=== PATIENT | female | born 1940 | race Caucasian/White ===

== ENCOUNTER 2022-10-18 20:24 | Inpatient (IN) | payer OTHER, BC ==
[~2022-10-18] VITALS: Ht 162.6 cm; Wt 47.6 kg
[2022-10-18 20:31] VITALS: BP 154/60
--- NOTE | 2022-10-18 20:32 | NUR ---
PT AZAM ALS. TAKEN TO BED 11
--- NOTE | 2022-10-18 20:33 | NUR ---
Dr. Carreon examining patient.
[2022-10-18] MEDS ORDERED: HYDROcodone/APAP 5/325 MG 1 TAB TAB PO ONE (20:40)
--- NOTE | 2022-10-18 20:49 | NUR ---
PT TAKEN TO XRAY
--- NOTE | 2022-10-18 21:08 | NUR ---
82YR OLD FEMALE BIB EMS C/O LL LEG PAIN S/P FALL AND FX XYESTERDAY. PT WAS SEEN AT [facility] YESTERDAY FX LLEG/PELVIC. PT HAS A BRACE ON . PLUS SWELLING AROUND THE KNEE 10/10 SHARP PAIN. PT IS A&OX4. GOOD CAP REFILL . NO DISCOLORSATION. SKIN WARM AND DRY. PT ON BEDSIDE MONITOR BED AT LOWEST POSITION HOB ELEVATED CODEINE GABAPENTIN RA OSTEO
--- NOTE | 2022-10-18 21:41 | NUR ---
CONTACT INFO OF DAUGHTER AUSTEN FOLLOWS:
--- NOTE | 2022-10-18 21:42 | NUR ---
Dr. Carreon examining patient.
--- NOTE | 2022-10-18 22:42 | NUR ---
ADMISSION TO HOSPITIAL.
[2022-10-18] MEDS ORDERED: MORPHINE SULFATE 4 MG/ML SYR IVP ONE (22:45)
--- NOTE | 2022-10-18 22:55 | NUR ---
20G IV CATH L AC LABS DRAWN AND AT BEDSIDE
[2022-10-18] MEDS ORDERED: ACET-512 PO (22:57)
[2022-10-18] MEDS ORDERED: OXYC18CA PO (22:58)
[2022-10-18] MEDS ORDERED: AMLO10TA PO (22:58)
[2022-10-18] MEDS ORDERED: SYN.075 PO (22:59)
[2022-10-18] MEDS ORDERED: HYDR12.51 PO (23:00)
[2022-10-18] MEDS ORDERED: OMEP20EC11 PO (23:10)
[2022-10-18] MEDS ORDERED: ABAT250V IV (23:11)
[2022-10-18] MEDS ORDERED: METH2.5T6 PO (23:12)
[2022-10-18] MEDS ORDERED: FOLI1TAB90 PO (23:13)
[2022-10-18 23:23] LABS: BASOPHILS % (AUTO) 0.4 % (0.0-2.0); EOSINOPHILS # (AUTO) 0.1 K/uL (0-0.4); EOSINOPHILS % (AUTO) 0.7 % (0.0-4.0); HEMOGLOBIN 10.7 g/dL (12.0-16.0); LYMPHOCYTES % (AUTO) 10.9 % (20.5-51.1); MEAN CORPUSCULAR HEMOGLOBIN 33 pg (27-31); MEAN CORPUSCULAR HGB CONC 35 g/dL (33-37); MEAN CORPUSCULAR VOLUME 96.7 fL (80-94); MONOCYTES # (AUTO) 0.7 K/uL (0.8-1.0); NEUTROPHILS # (AUTO) 7.3 K/uL (1.8-7.7); PLATELET COUNT (AUTO) 177 K/uL (140-450); RED CELL DISTRIBUTION WIDTH 14.5 % (11.6-13.7); WHITE BLOOD COUNT (AUTO) 9.1 K/uL (4.8-10.8)
[2022-10-18 23:25] LABS: ANION GAP 7.3 (8-16); CARBON DIOXIDE 33.7 mmol/L (21-32); CHLORIDE 101 mmol/L (98-107); CREATININE 0.6 mg/dL (0.6-1.3); GLUCOSE 91 mg/dL (74-106); SODIUM SERUM 139 mmol/L (136-145); UREA NITROGEN, BLOOD 11 mg/dL (7-18)
--- NOTE | 2022-10-18 23:33 | NUR ---
PUREWIC APPLIED TO PT
--- NOTE | 2022-10-18 23:34 | NUR ---
COVID SWAB COLLECTED AND SENT TO LAB
--- NOTE | 2022-10-18 23:38 | NUR ---
BP 101/53, PER SAÚL HANCOCK, HOLD 4MG OF MORPHINE, INSTEAD GIVE 2MG OF MORPHINE. ORDERS CARRIED OUT.
--- NOTE | 2022-10-19 00:26 | NUR ---
PT ON BEDSIDE MATERIAL ENGINEER RESP EVEN AND UNLABORED. HOB ELEVATED AND BED AT LOWEST POSITION. PAIN LEVEL 7/10
[2022-10-19] MEDS ORDERED: MORPHINE SULFATE 2 MG/ML SYR IVP PRN (00:40)
--- NOTE | 2022-10-19 00:48 | NUR ---
PT MOVED TO BED 4
[2022-10-19] MEDS: MORPHINE SULFATE 2 MG/ML SYR IVP PRN ×5 (04:48→23:41)
--- NOTE | 2022-10-19 06:36 | NUR ---
PATIENT HAS BEEN SCREENED AND CATEGORIZED HIGH NUTRITION RISK. PATIENT WILL BE SEEN WITHIN 1-2 DAYS OF ADMISSION. 10/19/22-10/21/[address]
--- NOTE | 2022-10-19 07:12 | NUR ---
PT RECEIVED, CARE ASSUMED. PT LAYING IN BED WITH C/O LEFT LEG, KNEE PAIN. INTRODUCED MYSELF. WILL CONTINUE TO MONITOR
[2022-10-19] MEDS ORDERED: DOCUSATE SODIUM 100 MG GELCAP PO PRN (08:10)
[2022-10-19] MEDS ORDERED: POTASSIUM CHLORIDE 10 MEQ TABER PO PRN (08:10)
[2022-10-19] MEDS ORDERED: MAG SULF 2000 MG/WATER PREMIX 50 ML IV PRN (08:10)
[2022-10-19] MEDS ORDERED: ONDANSETRON 4 MG/2 ML VIAL IVP PRN (08:10)
[2022-10-19] MEDS ORDERED: ZOLPIDEM 10 MG TAB PO PRN (08:10)
[2022-10-19] MEDS ORDERED: ACETAMINOPHEN 325 MG TAB PO PRN (08:10)
[2022-10-19] MEDS ORDERED: LORazepam 2 MG/ML VIAL IVP PRN (08:10)
[2022-10-19] MEDS: hydroCHLOROthiazide 25 MG TAB PO SCH (09:00)
[2022-10-19] MEDS: LEVOTHYROXINE 0.075 MG TAB PO SCH (09:00)
[2022-10-19] MEDS: FOLIC ACID 1 MG TAB PO SCH (09:54)
[2022-10-19] MEDS: amLODIPine 5 MG TAB PO SCH (09:54)
--- NOTE | 2022-10-19 17:00 | NUR ---
PT LAYING IN BED WITH C/O LEFT KNEE PAIN. REPOSITIONED PT. WILL CONTINUE TO MONITOR
--- NOTE | 2022-10-19 18:47 | NUR ---
Patient will be admitted to care of RAJAN. Admited to 107A. Will go to room. Belongings list completed. Report to .
[2022-10-19 19:30] VITALS: BP 148/64
--- NOTE | 2022-10-19 19:30 | NUR ---
RECEIVED REPORT FROM DAY SHIFT NURSE RAJAN FOR CONTINUITY OF CARE. PATIENT IS A&O X4. PATIENT IS ON ROOM AIR, BREATHING IS NORMAL WITH SYMMETRICAL RISE AND FALL OF CHEST. PATIENT IV IS A 20G L ARM, NO FLUIDS RUNNING (SALINE LOCKED). PATIENT IS SITTING IN HIGH-FOWLERS POSITION. WILL CONTINUE TO OBSERVE PATIENT.
--- NOTE | 2022-10-20 | NUR ---
PATIENT HAD REQUESTED PAIN MEDICATION. PATIENT HAD BEEN MEDICATED IN ER AND MEDICATION WAS TOO EARLY. PATIENT STATED THAT THE MORPHINE DID NOT HELP HER, SHE NEEDED THE PAIN MEDICATIONS SHE TAKES AT HOME. PULLED UP PATIENT'S MEDICATION LIST FROM HOME AND MESSAGED DR. KAN THAT PATIENT WANTED HER PAIN MEDS FROM HOME. DR KAN MESSAGED BACK "OK TO RESUME HOME MEDICATIONS". WAS UNABLE TO PULL UP PATIENT'S PAIN MEDICATION IN THE SYSTEM TO PUT IN ORDER. CALLED PHARMACY; PHARMACY STATED THE STRENGTH OF PERCOCET PATIENT TAKES (OXYCODONE 10/325), IS NOT AVAILABLE TO US; AND RECOMMENDED EITHER 2 TABLETS OF OXYCODONE 5/325 OR THE MEDICATION (OXYCODONE 10 AND TYLENOL 325). MESSAGED DR KAN AND INFORMED HER THE MEDICATION WAS NOT AVAILABLE AND ASKED IF IT WAS OKAY TO DO 2 TABLETS OF THE 5/325. DR. KAN RESPONDED SAYING "YES". PLACED ORDER INTO THE SYSTEM.
--- NOTE | 2022-10-20 01:30 | NUR ---
PATIENT REQUESTED A SLEEPING MEDICATION TO HELP HER SLEEP. I INFORMED THE PATIENT SHE HAD AN AMBIEN ON FILE FOR SLEEP; AND ASKED IF SHE WOULD LIKE IT. PATIENT STATED "YES". ADMINISTERED AMBIEN TO PATIENT. WILL CONTINUE TO OBSERVE PATIENT.
[2022-10-20 04:00] VITALS: BP 156/63
[2022-10-20] MEDS: LEVOTHYROXINE 0.075 MG TAB PO SCH (06:00)
[2022-10-20] MEDS: oxyCODONE/APAP 5/325 MG 1 TAB TAB PO PRN ×3 (06:01→16:16)
[2022-10-20 06:48] LABS: BASOPHILS # (AUTO) 0.1 K/uL (0.00-0.22); BASOPHILS % (AUTO) 0.6 % (0.0-2.0); EOSINOPHILS # (AUTO) 0.1 K/uL (0-0.4); EOSINOPHILS % (AUTO) 0.7 % (0.0-4.0); HEMATOCRIT 33.2 % (36-48); HEMOGLOBIN 11.3 g/dL (12.0-16.0); LYMPHOCYTES # (AUTO) 0.9 K/uL (2.5-16.5); MEAN CORPUSCULAR HEMOGLOBIN 33 pg (27-31); MEAN CORPUSCULAR HGB CONC 34 g/dL (33-37); MEAN CORPUSCULAR VOLUME 97.8 fL (80-94); MONOCYTES # (AUTO) 0.8 K/uL (0.8-1.0); MONOCYTES % (AUTO) 9.4 % (1.7-9.3); NEUTROPHILS # (AUTO) 6.9 K/uL (1.8-7.7); NEUTROPHILS % (AUTO) 79.3 % (42.2-75.2); PLATELET COUNT (AUTO) 161 K/uL (140-450); RED BLOOD CELL COUNT(AUTO) 3.39 MIL/uL (4.20-5.40); RED CELL DISTRIBUTION WIDTH 14.6 % (11.6-13.7); WHITE BLOOD COUNT (AUTO) 8.7 K/uL (4.8-10.8)
--- NOTE | 2022-10-20 07:50 | NUR ---
PATIENT ENDORSED TO DAY SHIFT NURSE CARMEN FOR CONTINUITY OF CARE. PATIENT IS STABLE.
[2022-10-20 07:57] LABS: ANION GAP 9.5 (8-16); CARBON DIOXIDE 30.7 mmol/L (21-32); CHLORIDE 103 mmol/L (98-107); CREATININE 0.5 mg/dL (0.6-1.3); GLUCOSE 92 mg/dL (74-106); POTASSIUM 3.2 mmol/L (3.5-5.1); SODIUM SERUM 140 mmol/L (136-145); UREA NITROGEN, BLOOD 9 mg/dL (7-18)
[2022-10-20 08:00] VITALS: BP 157/82
[2022-10-20] MEDS ORDERED: oxyCODONE/APAP 5/325 MG 1 TAB TAB ONE (09:00)
[2022-10-20] MEDS ORDERED: MUPIROCIN CA NASAL 2% 1GM TUBE NS SCH (09:05)
[2022-10-20] MEDS ORDERED: CHLORHEXADINE GLUC 2% CLOTH TP SCH (09:05)
[2022-10-20] MEDS: hydroCHLOROthiazide 25 MG TAB PO SCH (10:01)
[2022-10-20] MEDS: FOLIC ACID 1 MG TAB PO SCH (10:01)
[2022-10-20] MEDS: amLODIPine 5 MG TAB PO SCH (10:02)
--- NOTE | 2022-10-20 11:53 | NUR ---
DC PLANNING: PATIENT HAS AN ORDER TO TRANSFER TO [facility] ORTHO EVALUATION. PER DR NEIL UNABLE TO DO THE SURGERY [facility]. AWAITING FOR DR MARSH TO EVALUATE PATIENT. MIRANDA SPOKE WITH DAUGHTER STATED PT WAS AT [facility] WAS TOLD NO NEED FOR SURGERY AT THIS TIME. DC PLAN AWAITING FOR ORTHO CM TO FOLLOW Addendum: 10/20/22 at 1314 by Suzie Amin RN DC PLANNING: RECEIVED A CALL FROM [facility], SPOKE WITH BENNIE POWELL PT'S PCP DR OSORIO CONTACTED HER AND ASKING HER TO TRANSFER PATIENT TO [facility] FOR [facility]ICAL THERAPY AND WILL ARRANGE THE SURGERY AT [facility] WHEN SHE IS READY. NOTIFIED DR KAN AND FAXED THE PAPERWORK TO [facility]. CM TO FOLLOW Addendum: 10/20/22 at 1543 by Suzie Amin RN DC PLANNING: PATIENT GOT ACCEPTED AT [facility] CAN GO TO ROOM 198-[address] WILL BE DR RONDON. BENNIE ARRANGED TRANSPORT WITH [facility] [phone] [facility] MANAGER TIME BETWEEN 7-8 PM NOTIFIED LILY. JEAN TO FOLLOW
--- NOTE | 2022-10-20 13:56 | NUR ---
PT. WITH LOW SANDEE SCALE AT MODERATE TO HIGH RISK, CONTINUE TO FOLLOW PRESSURE INJURY PREVENTION INTERVENTIONS. -POSITIONING: TURN AND REPOSITION PATIENT Q 2H OR SOONER USE PILLOWS TO KEEP BONY PROMINENCES FROM DIRECT CONTACT WITH SURFACES USE REPOSITIONING WEDGES TO PROVIDE 30-DEGREE ANGLE FOR SIDE LYING POSITIONS OFFLOADING OR FOAM DRESSING TO ALL TUBING TO PREVENT MEDICAL DEVICES RELATED PRESSURE INJURY -RE-EVALUATING AND MANAGING INCONTINENCE MONITOR SKIN CONDITION DURING POSITION CHANGE DO NOT MASSAGE REDNESS, BONY PROMINENCES FREQUENT SUGAR-CARE AND PROVIDE BARRIER CREAMS PRN IF SOILING MOISTURE CONTROL BY OFFER BED BURNS/URINAL /ABSORBENT PAD TO WICK AND HOLD MOISTURE KEEP SKIN DRY AND PROTECT FROM FRICTION -MANAGE FRICTION/SHEAR/MOBILITY KEEP HOB AT THE LOWEST LEVEL OF ELEVATION NO MORE THAN 30 DEGREE UNLESS OTHERWISE CONTRAINDICATED USE LIFT SHEET OR TRANSFER DEVICE TO MOVE PATIENT AND PREVENT LATERAL SHEER. PROTECT HEELS, ELBOWS BONY PROMINENCES WITH SKIN BERRIES OR FOAM DRESSING IF EXPOSED TO FRICTION OFFLOAD BILATERAL HEELS BY PLACING PILLOWS UNDER CALVES AT ALL TIMES, UNLESS OTHERWISE CONTRAINDICATED -PRESSURE REDISTRIBUTION SURFACE THERAPY EUFEMIA ISOFLEX MATTRESS -NUTRITION: PLEASE FOLLOW RD RECOMMENDATIONS AND OFFER NUTRITION SUPPLEMENTS IF ORDERED. PLEASE CONTACT WOUND CARE NURSE FOR ANY QUESTION AND CHANGE OF WOUND CONDITION.
--- NOTE | 2022-10-20 14:03 | NUR ---
10/20/22 RD INITIAL ASSESSMENT COMPLETED PLEASE REFER TO NUTRITION ASSESSMENT UNDER CARE ACTIVITY FOR ESTIMATED NUTRITIONAL NEEDS. 1. CONTINUE REGULAR DIET TOLERATED 2. RECOMMEND ENSURE BID FOR NUTRITION SUPPORT 3. RD TO FOLLOW-UP 7 DAYS, LOW RISK SHARLA STARR RD
[2022-10-20 15:56] VITALS: BP 138/54
[2022-10-20 16:00] VITALS: BP 138/54
--- NOTE | 2022-10-20 19:41 | NUR ---
ENDORSE PATIENT TO PM SHIFT NURSE IN STABLE CONDITION, PIV LAC SALINE LOCK, DISCHARGE CONSENT SIGNED. FERNANDO PEREZ GRAIN BROKER AND MARKET OPERATOR BETWEEN 1900 TO 1999 AND TRANSFER PATIENT TO [facility].
--- NOTE | 2022-10-20 19:53 | NUR ---
GET THE REPORT FROM MORNING NURSE VIVIANE PATIENT IS AOX4, ALL FALL PRECAUTION MEASURE ARE IN PLACE, CALL LIGHT IS WITHIN THE REACH, WILL CONTINUE TO MONITOR PATIENT.
--- NOTE | 2022-10-20 20:42 | NUR ---
PATIENT LEFT WITH STAFF NAME IS MELVI TO [facility] , REPORT GIVEN TO KALA BY MORNING NURSE VIVIANE, , PATIENT VITAL SIGN IS WITHIN THE NORMAL RANGE, PATIENT IS STABLE.
== END 2022-10-20 20:40 | DRG 534 ==
LOC: MED 20:24 → MMU 10-19 00:41 → MTU 10-19 17:52
PROVIDERS: ADMIT Family Medicine; ATTEND Family Medicine
DX: S72.92XA Unspecified fracture of left femur, initial encounter for closed fracture (principal); M97.8XXA Periprosthetic fracture around other internal prosthetic joint, initial encounter; Z68.1 Body mass index [BMI] 19.9 or less, adult; S83.92XA Sprain of unspecified site of left knee, initial encounter; D64.9 Anemia, unspecified; E87.6 Hypokalemia; E83.51 Hypocalcemia; I10 Essential (primary) hypertension; Z20.822 Contact with and (suspected) exposure to COVID-19; Z96.653 Presence of artificial knee joint, bilateral; W18.30XA Fall on same level, unspecified, initial encounter; Y93.89 Activity, other specified; Y92.89 Other specified places as the place of occurrence of the external cause; Y99.8 Other external cause status; Z88.5 Allergy status to narcotic agent; Z88.8 Allergy status to other drugs, medicaments and biological substances
CPT/HCPCS: 36415; 72170; 73562; 80048; 83735; 85025; 87081; 96374; 99285; J1644; J2270